=== PATIENT | male | born 1950 | race Caucasian/White ===

== ENCOUNTER 2024-01-28 22:15 | Inpatient (IN) | payer MEDICARE, OTHER, SELFPAY ==
[2024-01-28 13:13] VITALS: BP 169/86
--- NOTE | 2024-01-28 16:00 | ED.GENMED ---
History of Present Illness
General
Chief Complaint: Abdominal Symptoms
Source: patient
Exam Limitations: none
Time Seen by Provider: 01/28/24 15:34
Nursing documentation reviewed up to this point in time: agreed with
History of Present Illness
History of Present Illness:
Patient to ED with complaint of inability to pass urine, constipation. Last BM was sunday. Last urination was this AM. Muller placed in triage, drained 1100cc. No prior history of same. Denies fever/chills,n/v/d. Mild lower abd. discomfort.
Did not treat constipation at home.
Past History
Past History
ED Past Medical History: HTN and NIDDM
ED Past Surgical History: None
Social History
Tobacco: Non-smoker
Alcohol: Daily (1 glass red wine/day)
Drug: None
Review of Systems
Review of Systems
Allergies reviewed?: Yes
All Other Systems: ROS reviewed and negative except as documented in HPI and ROS
Constitutional: Reports no symptoms
EENT: Reports no symptoms
Respiratory: Reports no symptoms
Cardiac: Reports no symptoms
ABD/GI: Reports constipated
: Reports difficulty voiding
Musculoskeletal: Reports no symptoms
Skin: Reports no symptoms
Neurological: Reports no symptoms
Psychiatric: Reports no symptoms
Phy Exam
General Physical Exam
General Presentation: mild distress
General age: appears stated age
General Skin: warm and dry
General Habitus: normal
General Mental: alert
Cardiovascular Exam
Cardiovascular Exam: regular rate/rhythm and no edema
Pulmonary Exam
Pulmonary Exam: lungs clear and no respiratory distress
Gastrointestinal Exam
Gastrointestinal Exam: soft, no organomegaly, no pulsatile mass and no cva tenderness
Palpation: left upper quadrant: No tenderness, left lower quadrant: Mild tenderness, right upper quadrant: No tenderness and right lower quadrant: Mild tenderness
Rectal Exam: impacted stool (Large amt of stool removed digitally)
Stool: brown
Musculoskeletal Exam
Musculoskeletal Exam: full ROM and neuro vasc intact
Skin Exam
Skin Exam: normal color, warm/dry and no rash
Psychiatric Exam
Psychiatric Exam: normal mood/affect
Course
Orders/Labs/Results
Orders:
Orders
01/28/24 14:36
Catheter [Muller Placement- Treatment] ONCE
Reason for insertion: Acute Retention
01/28/24 15:59
Abdomen Xray - 1 View [CR Abdomen - 1 View] Urgent
Comment:
Reason For Exam: constipation
01/28/24 16:44
CT Abd/pel W Iv And Oral Contr Urgent
Comment:
Reason For Exam: abdominal distention, pain
Iohexol [Omnipaque] See Protocol PO NOW STA
01/28/24 17:07
Complete Blood Count/With Diff Urgent
Comprehensive Metabolic Panel Urgent
Urinalysis Reflex To Culture Urgent
Date Specimen was Collected: 01/28/24
Time Specimen was Collected: 16:18
Urine Microscopic Reflex Cult Urgent
01/28/24 21:05
Phosphate Enema [Fleet Phosphate Enema-Adult] 135 ml RECTAL NOW STA
Polyethylene Glycol Powder [Miralax] 17 grams PO NOW STA
01/28/24 21:07
Piperacillin/Tazo 3.375 Gram [Zosyn] 3.375 gram in 50 ml IV NOW
01/28/24 21:13
ColoRectal Surgery Consult Urgent
Consulting Provider: David Pickens
Was physician already notified: Yes
01/28/24 21:15
0.9% Sodium Chloride 1000 ml [Nss] 1,000 ml IV 125 mls/hr
01/28/24 21:35
Admit/Transfer Patient As Directed
Co-Sign Provider:
Level of Care: Inpatient admission
Assign to:: Medical/Surgical
Physician / Group: oumou
Diagnosis: stercoral colitis
Reason for Hospitalization: stercoral colitis
Expected length of stay greater than two midnights?: Yes
ELOS- Estimated Length of Stay in days: 3
I certify the patient meets the requirements for IP care: Yes
01/28/24 21:36
Code Status As Directed
Resuscitation Status: Full Code
Abnormal Lab Results
01/28/24
17:07
WBC 11.2 H 10^3/uL
(4.8-10.8)
Absolute Neuts (auto) 10.0 H 10^3/uL
(1.4-6.5)
Absolute Lymphs (auto) 0.6 L 10^3/uL
(1.2-3.4)
Neutrophils % 89.2 H %
(42.2-75.2)
Lymphocytes % 5.1 L %
(20.5-51.1)
Glucose 183 H mg/dl
(70-99)
Urine Ketones 1+ A
(Negative)
Ur Occult Blood Reflex 2+ A
(Negative)
Urine RBC 11-15 A /HPF
(0-2)
Urine Bacteria (Reflex) Few A
(Negative)
Urine Glucose 1+ A
(Negative)
01/28/24 17:07
01/28/24 17:07
Vital Signs
Initial and Last Documented VS:
Initial Vital Signs
Temp Pulse Resp BP Pulse Ox
98.3 F 100 22 169/86 97
01/28/24 13:13 01/28/24 13:13 01/28/24 13:13 01/28/24 13:13 01/28/24 13:13
Last Documented Vital Signs
Temp Pulse Resp BP Pulse Ox
98.4 F 83 18 149/81 97
01/28/24 21:00 01/28/24 19:38 01/28/24 19:38 01/28/24 19:38 01/28/24 19:38
*Radiology
Radiology exam reviewed: radiology read reviewed
*Pulse Oximetry
Patient hypoxic: no
*Critical Care Note
Total Time (30-74mins, 75-104mins- exclusive of procedures): Not Applicable
Update Note
Update Note:
Case discussed with Dr. Pickens, he was able to review CT. Recommends admission, zosyn, miralax, clear liquids IVF. Large amt of stool removed during digital disimpaction. Enema ordered and too be administerd. Will admit to hospitalist.
to consult.
ED Attending Note
-
Portions of this chart may have been created with voice recognition software.� Occasional wrong word or��sound alike� substitutions may have occurred due to the inherent limitations of voice recognition software.
Discharge Plan
Departure
Patient Disposition: Admit
Date of Disposition: 01/28/24
Time of Disposition: 21:12
Presentation/result/management discussed w/ accepting MD/DO: Hospitalist
Condition: Fair
Covid-19: Not Applicable
Discharge Problem:
Stercoral colitis
Interventions
Interventions:
*Risk Screen - Suicide Last Done: 01/28/24 13:13
*General Assessment Last Done: 01/28/24 13:13
*Neglect/Abuse Screening Last Done: 01/28/24 13:13
ED- Fall Risk Assessment Last Done: 01/28/24 19:39
*ED COVID-19 Vaccine History Last Done: 01/28/24 13:13
*Nursing Disposition Last Done: 01/28/24 22:54
PO-Uqeypc-Cwekaxzwxw Assessment Last Done: 01/28/24 15:39
Discharge Date and Time
Discharge Date/Time: 01/28/24 22:55
[2024-01-28] MEDS: OMNIPAQUE 50 ML PO (17:07)
[2024-01-28 17:21] VITALS: BP 128/67
[2024-01-28 17:28] LABS: % Basophils 0.2 % (0-2); % Eosinophils 0.1 % (0-6); % Immature Granulocytes 0.4 % (0-0.5); % Lymphocytes 5.1 % (20.5-51.1); % Neutrophils 89.2 % (42.2-75.2); Absolute Lymphocytes 0.6 10^3/uL (1.2-3.4); Absolute Monocytes 0.6 10^3/uL (0.1-0.6); Hematocrit 44.3 % (39.0-52.0); Mean Corp Hgb Conc. 33.9 g/dL (33.0-37.0); Mean Corpuscular Hgb 28.5 pg (27.0-31.0); Mean Corpuscular Volume 84.2 fL (80.0-94.0); Mean Platelet Volume 9.8 fL (7.4-10.4); Nucleated Red Blood Cells % 0 % (-); Platelet Count 183 10^3/uL (130-400); Red Blood Cell Count 5.26 10^6/uL (4.70-6.10); Red Cell Dist. Width 12.6 % (11.5-14.5); White Blood Cell Count 11.2 10^3/uL (4.8-10.8)
[2024-01-28 17:31] LABS: Urine Albumin Negative (Neg - Trace); Urine Bilirubin Negative (Negative); Urine Character Clear (Clear); Urine Color Yellow; Urine Glucose 1+ (Negative); Urine Ketone 1+ (Negative); Urine Leukocyte Negative (Negative); Urine Nitrite Negative (Negative); Urine Occult Blood 2+ (Negative); Urine Specific Gravity 1.015 (<1.030); Urine Urobilinogen Negative (Neg - 1+)
[2024-01-28 17:37] LABS: Urine Bacteria Few (Negative); Urine White Cell 0-2 /HPF (0-5)
[2024-01-28 17:43] LABS: ALT (SGPT) 45 U/L (0-50); AST (SGOT) 41 U/L (17-59); Albumin 4.7 g/dl (3.5-5.0); Alkaline Phosphatase 75 U/L (38-126); Blood Urea Nitrogen 13 mg/dl (9-20); Calcium 10.2 mg/dl (8.4-10.2); Carbon Dioxide 27 mmol/L (22-30); Chloride 101 mmol/L (98-107); Glucose 183 mg/dl (70-99); Potassium 4.5 mmol/L (3.5-5.1); Sodium 138 mmol/L (135-145); Total Bilirubin 1.1 mg/dl (0.2-1.3); Total Protein 7.7 g/dl (6.3-8.2); eGFR > 60.00
[2024-01-28 19:38] VITALS: BP 149/81
--- NOTE | 2024-01-28 21:17 | HPS.HSE ---
Addendum entered and electronically signed by Ren Reyes DO 01/28/24 21:53:
Patient seen and examined independently. Agree with findings and plan as set forth by ZORA Adams.
Patient is a 73y M with PMH significant for hypertension and DM-II who presents to ED complaining of inability to urinate today. Patient states that his last BM was Sunday; however, he notes that this is not terribly unusual for him. He
urinated after waking this AM - but has been unable to pass urine since. He noted some lower abdominal discomfort and presented to the ED for further evaluation. Patient was noted to be in urinary retention and Muller catheter was placed. CT was
done showing large stools burden and possible mild stercoral colitis. Patient denies any history of chronic constipation issues, etc.
Ass:
Constipation
Mild Stercoral Colitis secondary to the above
Urinary Retention secondary to the above
Benign Hypertension
DM-II
Obesity due to excess calories
Plan:
Admit for further evaluation and treatment.
Bowel regimen including enemas, Miralax, etc.
Follow for results.
Maintain Muller for now - probable TOV once constipation is cleared.
IV Zosyn for now for mild stercoral colitis.
CRS consulted in the ED.
Continue home losartan.
Follow glucose and cover with SSI as needed.
Original Note:
Family Physician
-
Family Physician: Mitzy Paul DO
Chief Complaint
-
constipation
unable to void
History of Present Illness
73 year old with PMH for HTN, DM presented to us with inability to pass urine, constipation. Last BM was Sunday. Last urination was this AM. denied abdominal pain, distention, n/v.denied dysuria or hematuria. denied BUSTOS, dizzy or syncopal episode.
denied fever, chills, chest pain,sob. Muller placed in triage, drained 1100cc.
CT with stercoral colitis.
Medical History
Past Medical History
Past Medical History: Reports Other
Additional Past Medical History:
HTN
DM
Past Surgical History: Reports None
Social History
Tobacco: Non-smoker
Alcohol: Daily (wine)
Drug: None
Employment: Employed (CPA)
Family History
Family History: Not pertinent
Allergies / Home Medications
Allergies reflects when Allergies were last updated in [employer].
Home Medications with original date entered in [employer]
Allergy/Medication List:
Allergies
Allergy/AdvReac Type Severity Reaction Status Date / Time
No Known Allergies Allergy Unverified 01/28/24 13:16
Home Medications
ascorbic acid (vitamin C) 1,000 mg tablet (Vitamin C) 1,000 mg PO DAILY 01/28/24
losartan 50 mg tablet 50 mg PO DAILY 01/28/24
cygeicgn-nu-emxll 300 mcg-K 60 mcg-lycop 600 mcg-lutein 300 mcg tablet (Men 50 Plus Multivitamin) 1 tab PO DAILY 01/28/24
sitagliptin phos 100 mg-metformin ER 1,000 mg tablet,extend rel 24h mp (Janumet XR) 1 tab PO DAILY 01/28/24
vitamin B complex 1 tab PO DAILY 01/28/24
Review of Systems
-
Constitutional: Reports No Symptoms
EENT: Reports No Symptoms
Respiratory: Reports No Symptoms
Cardiac: Reports No Symptoms
Abdomen/GI: Reports Constipated
: Reports Difficulty Voiding
Musculoskeletal: Reports No Symptoms
Skin: Reports No Symptoms
Neurological: Reports No Symptoms
Endocrine: Reports No Symptoms
Hematologic/Lymphatic: Reports No Symptoms
Psych: Reports No Symptoms
Physical Exam
Vital Signs
Vital Signs
Temp Pulse Resp BP Pulse Ox
98.4 F 83 18 149/81 97
01/28/24 17:21 01/28/24 19:38 01/28/24 19:38 01/28/24 19:38 01/28/24 19:38
Physical Exam
General: Well Developed, Well Nourished and No Apparent Distress
HEENT: NormoCephalic, Moist mucous membranes and Atraumatic
Respiratory: Clear
Cardiac: S1/S2 and Regular Rhythm; No Murmur or Rub
GI: Soft, Non Tender, Non Distended and Normal Bowel Sounds; No Organomegaly
Rectal: Deferred by Provider
Musculoskeletal: No Clubbing, No Cyanosis and No Edema
Skin: No Rash
Neuro: AO x 3 and Nonfocal/grossly intact
Psych: Calm
Laboratory Results
-
01/28/24 17:07
01/28/24 17:07
Laboratory Results
Total Bilirubin 1.1 mg/dl (0.2-1.3) 01/28/24 17:07
AST 41 U/L (17-59) 01/28/24 17:07
ALT 45 U/L (0-50) 01/28/24 17:07
Alkaline Phosphatase 75 U/L (38-126) 01/28/24 17:07
Data Reviewed
-
Diagnostic Radiology: Report Reviewed by me
CT Scan: Report Reviewed by me
Lab Data: Labs Reviewed by me
Impression/Plan
-
#stercoral colitis
-wbc 11.2
-clear liquid diet
-fluids continued for hydration
-Zosyn iv continued
-miralax continued,senna and Colace
-enema given in ER,Large amt of stool removed during digital disimpaction
-Ct abdomen pelvis with MILD STERCORAL COLITIS in the SIGMOID COLON and RECTUM which are distended with a large amount of fecal material consistent with constipation.Moderate to severe diffuse hepatic steatosis.Moderate pancreatic lipomatosis.
Mild chronic bilateral renal disease. Muller catheter in the urinary bladder. Moderate to severe discogenic degenerative disease and severe central canal stenosis at L4/L5.
-abdomen X ray with Moderate colonic stool burden.Nonspecific bowel gas pattern with a single loop of prominent small bowel in the central abdomen. An enteritis or developing obstruction would be potential considerations. Clinical correlation is
recommended.
#essential htn
-losartan continued
#Type 2 Dm
-sliding scale
-hold Janumet
#DVT prophylaxis
-scd
#CODE status
-full code
[2024-01-28] MEDS: NSS 1000 IV ×2 (22:02→23:44)
[2024-01-28] MEDS: ZOSYN 50 IV (22:02)
[2024-01-28] MEDS: MIRALAX 17 GRAMS PO (22:05)
[2024-01-28] MEDS: FLEET PHOSPHATE ENEMA-ADULT 135 ML RECTAL (22:05)
[2024-01-28 23:07] VITALS: BMI 29.9
[2024-01-28 23:08] VITALS: BP 132/73
[2024-01-29] MEDS: ZOSYN 50 IV ×2 (03:33→09:04)
[2024-01-29 06:22] LABS: Hematocrit 39.3 % (39.0-52.0); Hemoglobin 13.3 g/dL (13.0-18.0); Mean Corp Hgb Conc. 33.8 g/dL (33.0-37.0); Mean Corpuscular Hgb 28.7 pg (27.0-31.0); Mean Corpuscular Volume 84.7 fL (80.0-94.0); Mean Platelet Volume 10.2 fL (7.4-10.4); Platelet Count 173 10^3/uL (130-400); Red Blood Cell Count 4.64 10^6/uL (4.70-6.10); Red Cell Dist. Width 12.8 % (11.5-14.5); White Blood Cell Count 8.1 10^3/uL (4.8-10.8)
[2024-01-29 06:54] VITALS: BP 130/67
[2024-01-29 06:56] LABS: Blood Urea Nitrogen 11 mg/dl (9-20); Calcium 9.1 mg/dl (8.4-10.2); Carbon Dioxide 25 mmol/L (22-30); Chloride 104 mmol/L (98-107); Estimated Creatinine Clearance 106 ml/min; Glucose 153 mg/dl (70-99); Potassium 4.1 mmol/L (3.5-5.1); Sodium 137 mmol/L (135-145); eGFR > 60.00
[2024-01-29 07:47] LABS: Glucose - Point of Care 164 mg/dl (70-99)
[2024-01-29] MEDS: SENOKOT 8.59999999999999964 MG PO (08:58)
[2024-01-29] MEDS: COLACE 100 MG PO (08:59)
[2024-01-29] MEDS: COZAAR 50 MG PO (08:59)
[2024-01-29] MEDS: NSS 1000 IV (09:04)
[2024-01-29] MEDS: NOVOLOG FLEXPEN-LOW RESISTANCE 1 UNITS SC ×2 (09:05→12:34)
--- NOTE | 2024-01-29 09:38 | CON.CRS ---
Consultation
-
Date/Time Consultation Requested: 01/28/2024, 21:13
Date/Time Consultation Performed: 01/29/2024, 08:45
Requesting Provider: Josette Hernandez NP
Performing Provider: Mohit Tuttle MD
Reason for Consultation: sterocoral colitis
Medical History
-
Chief Complaint: constipation/urinary retention
History of Present Illness:
73-year-old male presents to the ER on 01/28/2024 complaining of urinary retention and constipation. The patient states this is never happened to him before. Normally his bowel movements are regular and has about once every day to every other day.
His bowel movements are usually not constipated. He states because he was unable to urinate he came to the ER. He states he has had no changes in diet and has had no recent infections. He has not tried any laxatives. He has not noticed any blood
in his stool. He has no rectal issues at baseline. His last colonoscopy was about 7 years ago at [facility] in [facility] and he regularly gets them every 7 years. He had no polyps on his last colonoscopy. The report is not available for
review. The patient states he is currently in no pain and had no fevers or chills at home. CT of the abdomen and pelvis performed in the ER showed mild stercoral colitis in the sigmoid colon and the rectum and constipation. He was disimpacted in
the ER and received 1 enema. He had a 'massive blowout' overnight. He is currently very hungry. A Muller catheter was placed in the ER.
Past Medical History
Past Medical History: HTN and IDDM
Past Surgical History: None
Social History
Tobacco: Non-Smoker
Alcohol: Daily
Employment: Employed
Family History
Family History: Reviewed & Not Pertinent
Allergies / Home Medications
Allergy/AdvReac Type Severity Reaction Status Date / Time
No Known Allergies Allergy Unverified 01/28/24 13:16
�Medication �Instructions �Recorded �Confirmed �Type
ascorbic acid (vitamin C) 1,000 mg 1,000 mg PO DAILY Supplement 01/28/24 01/28/24 History
tablet (Vitamin C)
losartan 50 mg tablet 50 mg PO DAILY Blood Pressure 01/28/24 01/28/24 History
xqkndqhs-bv-xkdzg 300 mcg-K 60 1 tab PO DAILY Supplement 01/28/24 01/28/24 History
mcg-lycop 600 mcg-lutein 300 mcg
tablet (Men 50 Plus Multivitamin)
sitagliptin phos 100 mg-metformin 1 tab PO DAILY Diabetes 01/28/24 01/28/24 History
ER 1,000 mg tablet,extend rel 24h
mp (Janumet XR)
vitamin B complex 1 tab PO DAILY Supplement 01/28/24 01/28/24 History
Review of Systems
-
History Source: Patient
Abdomen/GI: Constipated
: Difficulty Voiding and Other
A 10 point review of systems was completed, and was negative except as per HPI.
Physical Exam
Vital Signs
Temp 99 F 01/29/24 06:54
Pulse 75 01/29/24 06:54
Resp Rate 18 01/29/24 06:54
Blood pressure 130/67 01/29/24 06:54
SaO2 94 01/29/24 06:54
01/28/24 01/29/24 01/30/24
06:59 06:59 06:59
Actual Weight 99.79 kg
Body Mass Index (BMI) 29.9
Lab Results / Allergies
01/29/24 04:49
01/29/24 04:49
WBC 8.1 10^3/uL (4.8-10.8) 01/29/24 04:49
Hgb 13.3 g/dL (13.0-18.0) 01/29/24 04:49
Hct 39.3 % (39.0-52.0) 01/29/24 04:49
Plt Count 173 10^3/uL (130-400) 01/29/24 04:49
Abs Immat Gran (auto) 0.0 10^3/uL (0-0.05) 01/28/24 17:07
Neutrophils % 89.2 % (42.2-75.2) H 01/28/24 17:07
Allergy/AdvReac Type Severity Reaction Status Date / Time
No Known Allergies Allergy Unverified 01/28/24 13:16
Physical Exam
General: Well Developed and No Apparent Distress
GI: Soft, Non Tender and Non Distended
Rectal: Other (some stool in rectal vault, mild nodularity around the anus, no kandy mass, no blood)
Neuro: AO x 3
Assessment / Plan
-
Assessment: 73-year-old male with stercoral colitis found on CT, disimpacted in the ER and had large bowel movements since using an enema
Plan:
No plans for surgery at this time. Recommend neurology consult. Okay to advance diet from our perspective. Recommend outpatient bowel regiment. Follow-up in the office with Dr. Tuttle in a few weeks to undergo an anoscope due to mild nodularity
felt on exam. Discussed with patient.
--- NOTE | 2024-01-29 12:13 | W.PN.HOSP.TC ---
Addendum entered and electronically signed by Jorge Barrera MD 01/30/24 15:32:
[id number]
Original Note:
Today's Communication/Plan
-
senakot prn
TOV
F/u PCP, CRS, GI, Urology outpatient
Assessment / Plan
Assessment / Plan
Physical Exam
General: Well Developed, Well Nourished and No Apparent Distress
HEENT: NormoCephalic, Moist mucous membranes and Atraumatic
Respiratory: Clear
Cardiac: S1/S2 and Regular Rhythm; No Murmur or Rub
GI: Soft, Non Tender, Non Distended and Normal Bowel Sounds; No Organomegaly
Rectal: Deferred by Provider
Musculoskeletal: No Clubbing, No Cyanosis and No Edema
Skin: No Rash
Neuro: AO x 3 and Nonfocal/grossly intact
Psych: Calm
#Stercoral colitis
-2/2 to constipation - resolved
-Received last C-Scope in last than 5 years
-Advance to regular diet
-F/u CRS/GI outpatient for anoscopy
#Urinary Retention
-most likely 2/2 constipation
-remove weeks
-Start tamsulosin
#essential htn
-losartan continued
#Type 2 Dm
-sliding scale
-resume dm
#DVT prophylaxis
-scd
#CODE status
-full code
More than 30 minutes spent in discharge including
Final examination of the patient
Summarizing hospital stay
Instructions for continuing care to all relevant caregivers
Preparation of discharge records, prescriptions, and referral forms
Total time spent (35 in minutes):
Anticipated Discharge: Today
Subjective/Interval History
-
Date of Service: January 29, 2024
had Bm yesterday; Weeks removed
Objective Data
-
Labs:
Laboratory Results
01/29/24
04:49
WBC 8.1
Hgb 13.3
Hct 39.3
Plt Count 173
Sodium 137
Potassium 4.1
Chloride 104
Carbon Dioxide 25
BUN 11
Creatinine 0.7
Glucose 153 H
Calcium 9.1
Vital Signs:
Vital Signs
Temp Pulse Resp BP Pulse Ox
99 F 75 18 130/67 94
01/29/24 06:54 01/29/24 06:54 01/29/24 06:54 01/29/24 06:54 01/29/24 06:54
I&O
01/28/24 01/29/24 01/30/24
06:59 06:59 06:59
Intake Total 860 / 860
Output Total 2800 / 2800
Balance -194 / -1939
Review of Systems
-
History Source: Patient
All other systems: Not reviewed unless documented
Data Reviewed
-
Diagnostic Radiology: Image personally visualized and interpreted and Report Reviewed by me
CT Scan: Image personally visualized and interpreted and Report Reviewed by me
Labs: Labs Reviewed by me
--- NOTE | 2024-01-29 12:16 | CM ---
Initial assessment completed with patient who lives alone in a 2 story home w no basement and 1 step to enter, no DME or in-home services. [employer] was independent, drove and worked as CPA. No psychiatric hospitalizations. Pharmacy is [facility] in [place] and PCP is Dr. Mitzy Paul. Anticipate no needs at discharge.
[2024-01-29 12:22] LABS: Glucose - Point of Care 165 mg/dl (70-99)
[2024-01-29] MEDS: FLOMAX 0.400000000000000022 MG PO (12:35)
--- NOTE | 2024-01-29 12:45 | W.DS.TRANS ---
DC Summary - Telephone Switchboard Operator
-
Discharge Instructions:
Discharge Diagnosis/Procedures stercoral proctocolitis
constipation/urinary retention
Diet Low Fat,Low Cholesterol
Activity As tolerated
Instructions:
Stand-Alone Forms:
Changes to Home Medications: Yes
Discharge Medications:
DC Medications w/original date entered in [employer]
ascorbic acid (vitamin C) 1,000 mg tablet (Vitamin C) 1,000 mg PO DAILY Supplement 01/28/24
losartan 50 mg tablet 50 mg PO DAILY Blood Pressure 01/28/24
illcfkmo-ex-sroph 300 mcg-K 60 mcg-lycop 600 mcg-lutein 300 mcg tablet (Men 50 Plus Multivitamin) 1 tab PO DAILY Supplement 01/28/24
sitagliptin phos 100 mg-metformin ER 1,000 mg tablet,extend rel 24h mp (Janumet XR) 1 tab PO DAILY Diabetes 01/28/24
vitamin B complex 1 tab PO DAILY Supplement 01/28/24
bisacodyl 10 mg rectal suppository 30 mg MT [id number] PRN constipation #30 ea 01/29/24
sennosides 8.6 mg-docusate sodium 50 mg tablet (Stool Softener-Laxative) 1 tab PO BIDPRN PRN constipation 30 days #60 tabs 01/29/24
tamsulosin 0.4 mg capsule 0.4 mg PO DAILY 30 days #30 caps 01/29/24
Home Medication Changes
bisacodyl 10 mg rectal suppository 30 mg MT [id number] PRN constipation #30 ea 01/29/24
sennosides 8.6 mg-docusate sodium 50 mg tablet (Stool Softener-Laxative) 1 tab PO BIDPRN PRN constipation 30 days #60 tabs 01/29/24
tamsulosin 0.4 mg capsule 0.4 mg PO DAILY 30 days #30 caps 01/29/24
Pending Results: No
[2024-01-29 12:57] VITALS: BP 133/70
--- NOTE | 2024-01-29 14:34 | CM ---
Patient has been medically cleared for discharge to home with no additional skilled services. Patient has arranged for transport home. j
== END 2024-01-29 13:35 | disposition home or self-care (01) | DRG 392 ==
LOC: 2 SOUTH 22:15
PROVIDERS: Nurse Practitioner; Registered Nurse; ADMITTING PHYSICIAN Hospitalist; ATTENDING PHYSICIAN Internal Medicine; EMERGENCY PHYSICIAN Student in an Organized Health Care Education/Training Program; FAMILY PHYSICIAN Family Medicine; OTHER PHYSICIAN Surgery
DX: K59.00 Constipation, unspecified (principal); K52.89 Other specified noninfective gastroenteritis and colitis; R33.8 Other retention of urine; I10 Essential (primary) hypertension; E11.9 Type 2 diabetes mellitus without complications; E66.09 Other obesity due to excess calories; Z68.29 Body mass index [BMI] 29.0-29.9, adult; Z79.84 Long term (current) use of oral hypoglycemic drugs
CPT/HCPCS: 51702; 51798; 74018; 74177; 80048; 80053; 81003; 81015; 82962; 83036; 85025; 85027; 99285; Q9967